=== PATIENT | male | born 1985 | race Caucasian/White ===

== ENCOUNTER 2017-10-07 21:55 | Emergency (ER) | payer MEDICAID ==
[~2017-10-07] VITALS: Ht 185.4 cm; Wt 81.6 kg
--- NOTE | 2017-10-07 22:47 | NUR ---
CALLED PT NAME [id number]. NO ONE RESPONDED IN WR. WILL FOLLOW UP
[2017-10-07 23:39] VITALS: BP 152/77
== END 2017-10-08 00:42 | disposition home or self-care (01) ==
LOC: ER 22:02
DX: G89.29 Other chronic pain (principal); M46.90 Unspecified inflammatory spondylopathy, site unspecified; M06.9 Rheumatoid arthritis, unspecified; Z60.2 Problems related to living alone
CPT/HCPCS: 99283; A4606; Z7610